=== PATIENT | female | born 1995 | race Caucasian/White ===

== ENCOUNTER → 2017-02-04 | Outpatient (CLI) | payer OTHER ==
[2017-02-04 12:14] LABS: Blood Urea Nitrogen 11 mg/dL (7-17); Non-African American GFR(MDRD) >60 (>60 ml/min/1.73 sqM)
== END | disposition home or self-care (01) ==
LOC: LABWHC1 11:11
PROVIDERS: ATTEND Psychiatry & Neurology Neurology
DX: C71.1 Malignant neoplasm of frontal lobe (principal); R51 Headache
CPT/HCPCS: 36415; 82565; 84520

== ENCOUNTER → 2017-02-12 | Outpatient (CLI) | payer OTHER ==
--- NOTE | 2017-02-12 22:50 | MR ---
EXAMINATION TYPE: MR brain wo/w con, MR angio head wo con DATE OF EXAM: 02/12/2017 COMPARISON: Correlation CT 03/05/2016 HISTORY: 22-year-old female chronic migraines, evaluate for brain tumor or nonruptured cerebral aneur ysm. TECHNIQUE: Multiplanar, multisequence images of the brain and brainstem were acquired before and aft er administration of 11 ml IV MultiHance. Diffusion weighted imaging was performed. Additional high -resolution 3-D iuma-yf-zfhmku imaging of the [place] was performed. Rotational 3-D reconst ructions were generated on a dedicated independent workstation. FINDINGS: MRI: Prominent facial and orbital artifacts probably due to dental amalgam. This also limits the diffusion sequence. No definite abnormality on diffusion. Loss of fluid saturation on axial FLAIR sequence towards the vertex suspected to be artifactual as th ere is no abnormal thickened meningeal enhancement in this region. T2/FLAIR weighted sequences show no white matter signal abnormality. No evidence for acute infarction, hemorrhage, mass, mass effect, midline shift, herniation, effacemen t of basal cisterns, or extra-axial fluid collection. The ventricles and sulci are age-appropriate. Major intracranial flow voids are intact. Midline structures demonstrate normal morphology. The craniocervical junction is normal. Post contrast images demonstrate no evidence of pathologic enhancement. Dural venous sinuses are florentino nt. MRA: Anterior posterior circulation is patent without significant stenosis, arterial occlusion, or aneurys mal change seen. COMBINED IMPRESSION: 1. Prominent artifacts, probably due to extensive dental amalgam or braces. Clinically correlate. 2. Allowing for these artifacts, no definite intracranial abnormality or white matter signal changes are identified. 3. Unremarkable MRA [place].
== END | disposition home or self-care (01) ==
LOC: RADMRIMAIN 17:04
PROVIDERS: ATTEND Psychiatry & Neurology Neurology
DX: D33.2 Benign neoplasm of brain, unspecified (principal); I67.1 Cerebral aneurysm, nonruptured
CPT/HCPCS: 70544; 70553; A9577

== ENCOUNTER → 2018-06-04 | Outpatient (CLI) | payer OTHER ==
--- NOTE | 2018-06-04 14:42 | US ---
EXAMINATION TYPE: US pelvic complete DATE OF EXAM: 06/04/2018 COMPARISON: NONE CLINICAL HISTORY: Pelvic Pain R10.2. Pelvic pain, depo shot 06/02/18 TECHNIQUE: Transabdominal (TA) Date of LMP: beginning may EXAM MEASUREMENTS: Uterus: 8.9 x 4.5 x 5.8 cm Endometrial Stripe: 0.8 cm Right Ovary: 3.1 x 1.4 x 2.9 cm Left Ovary: 3.5 x 1.5 x 3.5 cm 1. Uterus: Anteverted 2. Endometrium: appears wnl 3. Right Ovary: follicles noted 4. Left Ovary: follicles noted 5. Bilateral Adnexa: appears wnl 6. Posterior cul-de-sac: trace amount of free fluid noted Heterogeneous anteverted uterus without suspicious endometrial thickening. Trace free fluid free flui d in pelvis favored physiologic. Both ovaries identified with peripheral follicles. No suspicious adnexal lesions. IMPRESSION: Unremarkable study.
== END ==
LOC: RADUSWWP 13:42
PROVIDERS: ATTEND Obstetrics & Gynecology
DX: R10.2 Pelvic and perineal pain (principal)
CPT/HCPCS: 76856

== ENCOUNTER → 2019-05-29 | Outpatient (CLI) | payer OTHER ==
--- NOTE | 2019-05-30 03:47 | MR ---
EXAMINATION TYPE: MR wrist RT wo con DATE OF EXAM: 05/29/2019 COMPARISON: HISTORY: R WRIST PAIN Standard multiplanar, multisequence MRI departmental protocol Multiplanar, multisequence images of the right wrist were acquired. FINDINGS: The carpal bones appear intact. There is fairly normal signal pattern. There is no evidence of a fracture. There is no sign of avascular necrosis. The triangular cartilage appears intact. The metacarpals have normal signal pattern without evidence of edema. There is no evidence of joint effus ion. The flexor tendons of the wrist appear intact. There is small amount of soft tissue edema around the ulnar styloid process. This measures 8 mm. No f racture seen. Collateral ligaments of the wrist appear intact. IMPRESSION: There is some soft tissue edema around the ulnar styloid process. No evidence of ligament tear. No fr acture seen. Normal joint spaces.
== END | disposition home or self-care (01) ==
LOC: RADMRIMAIN 18:45
PROVIDERS: ATTEND Family Medicine
DX: M79.89 Other specified soft tissue disorders (principal)

== ENCOUNTER → 2020-07-05 | Outpatient (CLI) | payer OTHER ==
--- NOTE | 2020-07-05 13:08 | US ---
EXAMINATION TYPE: US pelvic complete DATE OF EXAM: 07/05/2020 COMPARISON: US 06/04/18 CLINICAL HISTORY: Z97.5 IUD PLACEMENT, R10.2 PELVIC PAIN. TECHNIQUE: Transabdominal (TA). Transabdominal sonographic images of the pelvis were acquired. Tra nsvaginal sonographic images were medically necessary to better assess the following anatomy: Date of LMP: 2 years ago. Patient on Depo until 1 year ago when IUD was placed. EXAM MEASUREMENTS: Uterus: 9.6 x 6.7 x 3.4 cm Endometrial Stripe: 0.3 cm Right Ovary: 3.2 x 2.1 x 1.8 cm Left Ovary: 4.1 x 2.6 x 2.6 cm 1. Uterus: Anteverted wnl, IUD seen located centrally within uterus 2. Endometrium: wnl 3. Right Ovary: Follicles present 4. Left Ovary: Prominent size, Follicles present. Area of decreased echogenicity within left ovary= 2.5 cm. This may be an involuting cyst among other etiologies. Consider short-term follow-up in 6 we eks to reevaluate. Small amount of free fluid around left ovary. Spectral, color and waveform doppler imaging shows good arterial and venous flow within the ovaries ; there is no evidence for ovarian torsion. 5. Bilateral Adnexa: wnl 6. Posterior cul-de-sac: wnl IMPRESSION: 1. IUD within the endometrial canal. 2. There may be a hypoechoic 2.5 cm area within the left ovary. Follow-up exam in 6 weeks is recommen ded to reevaluate this finding.
== END | disposition home or self-care (01) ==
LOC: RADUSWWP 12:22
PROVIDERS: ATTEND Obstetrics & Gynecology
DX: R93.89 Abnormal findings on diagnostic imaging of other specified body structures (principal); Z97.5 Presence of (intrauterine) contraceptive device
CPT/HCPCS: 76856

== ENCOUNTER → 2021-09-12 | Outpatient (CLI) | payer OTHER ==
--- NOTE | 2021-09-12 23:33 | US ---
EXAMINATION TYPE: Ultrasound OB <= 14 week fetus DATE OF EXAM: 09/12/2021 2:54 PM COMPARISON: NONE CLINICAL HISTORY: 26-year-old female Z36 CONFIRM GESTATIONAL AGE AND VIABILITY. EXAM PERFORMED: Transabdominal (TA) FINDINGS: EXAM MEASUREMENTS: GESTATIONAL AGE / DATING Physician Established: Not yet established Dates by LMP: ( weeks/ day) EDC: 04/02/2022 Dates by First Scan: No previous Dates by Current Scan for: () EDC: 04/02/2022 MATERNAL ANATOMY Uterus: 15.6 x 9.4 x 6.9cm Right Ovary: 3.2 x 1.7 x 1.6cm Left Ovary: 4.2 x 2.7 x 2.5cm; left ovarian cyst seen = 2.3 x 2.2 x 1.9cm. Post CDS / Adnexa: wnl Presence of free fluid: no Presence of corpus luteal cyst: in right ovary = 1.7 x 1.4 x 1.1cm. Presence of subchorionic bleed: yes, seen as crescentic hypoechoic area = 4.0 x 6.5 x 0.6cm. Along th e posterior and inferior margin of the gestational sac GESTATION / SURVEY CRL: 4.2cm (11 weeks/1 day) Yolk Sac (normal less than 6mm): 4.0mm Heart Rate: 156 bpm Rhythm: Normal IUP: Viable IUP Limbs: Visualized Calvarium: Visualized Date of LMP: 06/26/2021 Beta HcG (if available): Not available at this time Chief Dietitian notes: Single live IUP, 11 weeks/1 day, EDC: 04/02/2022, HR 156bpm; Presence of subchorio flash bleed seen as hypoechoic area = 4.0 x 6.5 x 0.6cm. IMPRESSION: 1. Single live intrauterine with estimated gestational age of 11 weeks 1 day by LMP. Curren t ultrasound biometry by crown-rump length is exactly concordant. 2. Moderate-sized crescentic subchorionic bleed along the posterior and inferior margin of the gestat ional sac measuring up to 6.5 x 4.0 x 0.6 cm. 3. Short interval follow-up as clinically indicated. Otherwise, complete survey recommended at 18-20 weeks.
== END | disposition home or self-care (01) ==
LOC: RADUSWWP 14:21
PROVIDERS: ATTEND Obstetrics & Gynecology
DX: O20.8 Other hemorrhage in early pregnancy (principal); Z3A.11 11 weeks gestation of pregnancy
CPT/HCPCS: 76801

== ENCOUNTER 2021-12-14 14:23 | Emergency (ER) | payer OTHER ==
[2021-12-14 15:43] VITALS: RESP 18
[2021-12-14 16:14] LABS: Appearance,Urine Cloudy (Clear); Bacteria,Urine Few /hpf; Bilirubin,Urine Negative (Negative); Blood,Urine Negative (Negative); Color,Urine Yellow; Glucose,Urine (UA) Negative (Negative); Hyaline Casts,Urine 1 /lpf (0-2); Ketones,Urine Negative (Negative); Leukocyte Esterase,Urine Negative (Negative); Mucus,Urine Rare /hpf; Nitrite,Urine Negative (Negative); PH, Urine 7.5 (5.0-8.0); Protein,Urine Trace (Negative); RBC,Urine 1 /hpf (0-5); Specific Gravity,Urine 1.016 (1.001-1.035); Squamous Epithelial Cell,Urine 2 /hpf (0-4); Urobilinogen,Urine <2.0 mg/dL (<2.0); WBC,Urine 2 /hpf (0-5)
--- NOTE | 2021-12-14 17:18 | ED ---
URI HPI - General Chief Complaint: Upper Respiratory Infection Stated Complaint: 24 wks , Fever, cough Time Seen by Provider: 12/14/21 16:25 Source: patient, RN notes reviewed Mode of arrival: ambulatory Limitations: no limitations - History of Present Illness Initial Comments: This is a 26-year-old female who presents to the emergency department for coughing, congestion, a sore throat, and body aches. 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 She is 24 weeks . Denies any vaginal bleeding and is feeling regular movement. Symptoms have been present for 1-2 days. Her highest measured temperature was 99.7 degrees F and she does have chills. Denies any sick contacts. MD Complaint: cough, sore throat, nasal congestion Onset/Timin -: days(s) Associated Symptoms: chills Treatments Prior to Arrival: Acetaminophen - Related Data Home Medications Medication Instructions Recorded Confirmed Fpl-Aige-Mdrmd Acid 1 cap PO DAILY 12/14/21 12/14/21 [-U Capsule (formulary)] Previous Rx's Medication Instructions Recorded Oseltamivir [Tamiflu] 75 mg PO Q12HR 5 Days #10 cap 12/14/21 Allergies Allergy/AdvReac Type Severity Reaction Status Date / Time amoxicillin Allergy Rash/Hives Verified 12/14/21 18:35 polyethylene glycol 3350 Allergy Rash/Hives Verified 12/14/21 18:35 [From Miralax] Review of Systems ROS Statement: Those systems with pertinent positive or pertinent negative responses have been documented in the HPI. ROS Other: All systems not noted in ROS Statement are negative. Constitutional: Reports: chills. Denies: fever Eyes: Denies: eye pain ENT: Reports: throat pain, congestion. Denies: ear pain Respiratory: Reports: cough. Denies: dyspnea Cardiovascular: Denies: chest pain, palpitations Gastrointestinal: Denies: abdominal pain, nausea, vomiting, diarrhea Genitourinary: Denies: urgency, dysuria Musculoskeletal: Denies: back pain Skin: Denies: rash Neurological: Reports: headache Past Medical History Past Medical History: No Reported History History of Any Multi-Drug Resistant Organisms: None Reported Past Surgical History: No Surgical Hx Reported Past Psychological History: Depression Smoking Status: Never smoker Past Alcohol Use History: None Reported Past Drug Use History: None Reported General Exam Limitations: no limitations General appearance: alert, in no apparent distress Head exam: Present: atraumatic, normocephalic, normal inspection ENT exam: Present: normal exam, mucous membranes moist, TM's normal bilaterally, normal external ear exam, other (3+ tonisllar hypertrophy, which is normal per the patient. Mild pharyngeal erythema.) Neck exam: Present: normal inspection. Absent: tenderness, meningismus, lymphadenopathy Respiratory exam: Present: normal lung sounds bilaterally. Absent: respiratory distress, wheezes, rales, rhonchi, stridor Cardiovascular Exam: Present: regular rate, normal rhythm, normal heart sounds. Absent: systolic murmur, diastolic murmur, rubs, gallop, clicks Neurological exam: Present: alert, oriented X3, CN II-XII intact Psychiatric exam: Present: normal affect, normal mood Skin exam: Present: warm, dry, intact, normal color. Absent: rash Course Vital Signs 12/14/21 15:35 Temperature 98.7 F Pulse Rate 112 H Respiratory 18 Rate Blood Pressure 124/63 O2 Sat by Pulse 100 Oximetry Medical Decision Making - Medical Decision Making This is a 26-year-old female who presents to the emergency department for upper respiratory symptoms. Patient tested positive for influenza A. Prescription for Tamiflu provided. She is advised to take Tylenol for headaches, body aches, and fevers. She is also advised to stay well-hydrated and discuss other treatment options with her gas station supervisor to ensure they are safe in . heart tones within normal limits at 150-165 bpm. Patient given 500 mL fluid bolus and 650 mg of Tylenol before discharge per her request. Return precautions reviewed in depth, the patient is instructed to return to the emergency department with any new, worsening, or concerning symptoms. Patient verbalized understanding. This case was discussed in detail with the attending ED physician. Presentation, findings, and treatment plan discussed in detail as well. - Lab Data Lab Results 12/14/21 12/14/21 12/14/21 Range/Units 15:45 15:45 15:46 Urine Color Yellow Urine Appearance Cloudy H (Clear) Urine pH 7.5 (5.0-8.0) Ur Specific [place] 1.016 (1.001-1.035) Urine Protein Trace H (Negative) Urine Glucose (UA) Negative (Negative) Urine Ketones Negative (Negative) Urine Blood Negative (Negative) Urine Nitrite Negative (Negative) Urine Bilirubin Negative (Negative) Urine Urobilinogen <2.0 (<2.0) mg/dL Ur Leukocyte Esterase Negative (Negative) Urine RBC 1 (0-5) /hpf Urine WBC 2 (0-5) /hpf Ur Squamous Epith Cells 2 (0-4) /hpf Urine Bacteria Few H (None) /hpf Hyaline Casts 1 (0-2) /lpf Urine Mucus Rare H (None) /hpf Coronavirus (PCR) Not Detected (Not Detectd) Influenza Type A RNA Detected H (Not Detectd) Influenza Type B (PCR) Not Detected (Not Detectd) Disposition Clinical Impression: Influenza A Disposition: HOME SELF-CARE Instructions (If sedation given, give patient instructions): Influenza (ED), Upper Respiratory Infection (ED) Additional Instructions: Return to the emergency department with any new, worsening, or concerning symptoms. Take Tylenol as needed for fevers and body aches. Take the Tamiflu twice daily for 5 days. Follow up with your primary care provider in 1-2 days. Prescriptions: Oseltamivir [Tamiflu] 75 mg PO Q12HR 5 Days #10 cap Is patient prescribed a controlled substance at d/c from ED?: No Referrals: Jerman Garcia DO [Primary Care Provider] - 1-2 days
[2021-12-14] MEDS ORDERED: ACETAMINOPHEN TAB 325 MG TAB PO STA (18:51)
[2021-12-14] MEDS ORDERED: SODIUM CHLORIDE 0.9% 500 ML 500 ML IV STA (18:51)
[2021-12-14 19:58] VITALS: BP 119/61; PULSE 115; TEMP 97
== END 2021-12-14 20:38 | disposition home or self-care (01) ==
LOC: EC 14:23
DX: O98.512 Other viral diseases complicating pregnancy, second trimester (principal); J10.1 Influenza due to other identified influenza virus with other respiratory manifestations; Z20.822 Contact with and (suspected) exposure to COVID-19; Z3A.24 24 weeks gestation of pregnancy
CPT/HCPCS: 81001; 87502; 87635; 99284

== ENCOUNTER 2022-02-06 12:01 | Outpatient (CLI) | payer OTHER ==
[2022-02-06 13:15] VITALS: BP 126/77; PULSE 113; RESP 18; TEMP 98.4
--- NOTE | 2022-02-06 18:05 | P.MSEPDOC ---
Presenting Problems - Arrival Data Date of Arrival on Unit: 02/06/22 Time of Arrival on Unit: 12:07 Mode of Transport: Ambulatory - Complaint OB-Reason for Admission/Chief Complaint: Other Comment: c/o "heart racing" and occasional lightheadiness. Medical History - Information : 1 Para: 0 Term: 0 : 0 Abortions: Spontaneous or Elective: 0 Number of Living Children: 0 - Gestational Age Gestational Age by DARIELA (wks/days): 32 Weeks and 1 Days Review of Systems - Review of Systems Constitutional: No problems Breast: No problems ENT: No problems Cardiovascular: No problems Respiratory: No problems Gastrointestinal: No problems Genitourinary: No problems Musculoskeletal: No problems Neurological: No problems Skin: No problems Vital Signs - Temperature Temperature: 98.4 F Temperature Source: Temporal Artery Scan - Pulse Right Pulse Rate: 113 Pulse Assessment Method: Pulse Oximetry - Respirations Respiratory Rate: 18 Oxygen Delivery Method: Room Air O2 Sat by Pulse Oximetry: 100 - Blood Pressure Right Arm Blood Pressure: 126/77 Blood Pressure Mean: 93 Blood Pressure Source: Automatic Cuff Medical Screen Scoring - Cervical Exam Membranes: Intact - Assessment - Baby A Baseline FHR: 150 Heart Rate - NICHD Category: Category I (Normal) NST: Reactive Physician Notification - Physician Notified Physician Notified Date: 02/06/22 Physician Notified Time: 12:38 Physician: Elo Gonzalez Order Received: Yes (D/c home follow up with aluminum polisher.) Maternal Triage Index - Maternal Triage Index Presenting for scheduled procedure w/no complaint: No - Stat/Priority 1 Stat Priority 1: No - Urgent/Priority 2 Urgent Priority 2: No - Prompt/Priority 3 Prompt Priority 3: No - Non-Urgent/Priority 4 Non-Urgent Priority 4: Yes Criteria Met for Priority 4: c/o "heart racing" and occasional lightheadiness. - Scheduled/Requesting Priority 5 Scheduled/Requesting Priority 5: No Disposition - Disposition OB Disposition: Discharge to home Discharge Date: 02/06/22 Discharge Time: 12:48 I agree with the RN Medical Screening Exam: Yes Case reviewed; plan agreed upon as documented in EMR&OBIX.: Yes Comments: Patient advised to contact cardiology for follow-up regarding tachycardia. She has already completed a Holter monitor. Diagnosis: TACHYCARDIA, UNSPECIFIED
== END 2022-02-06 12:48 | disposition home or self-care (01) ==
LOC: FBPOP 12:01
PROVIDERS: ATTEND Obstetrics & Gynecology
DX: O99.413 Diseases of the circulatory system complicating pregnancy, third trimester (principal); R00.0 Tachycardia, unspecified; Z3A.32 32 weeks gestation of pregnancy; Z88.1 Allergy status to other antibiotic agents; Z88.8 Allergy status to other drugs, medicaments and biological substances
CPT/HCPCS: 59025; G0463; 99213

== ENCOUNTER 2022-04-01 07:57 | Inpatient (IN) | payer OTHER ==
[2022-04-01] MEDS ORDERED: LIDOCAINE 0.5% (PF) 5 MG/ML (50 ML SDV) SQ PRN (08:13)
[2022-04-01] MEDS ORDERED: CARBOPROST TROMETHAMINE 250 MCG/ML 1 ML AMP IM PRN (08:13)
[2022-04-01] MEDS ORDERED: TERBUTALINE 1 MG/ML VIAL SQ PRN (08:13)
[2022-04-01] MEDS ORDERED: OXYTOCIN 10 UNIT/ML 1 ML VIAL IM PRN (08:13)
[2022-04-01] MEDS ORDERED: METHYLERGONOVINE 0.2 MG/ML 1 ML AMP IM PRN (08:13)
[2022-04-01] MEDS: LACTATED RINGERS 1,000 ML IV SCH ×3 (08:41→12:23)
[2022-04-01 08:50] LABS: Basophils # (A) 0.1 k/uL (0-0.2); Basophils % (A) 0 %; Eosinophils # (A) 0.1 k/uL (0-0.7); Eosinophils % (A) 1 %; HCT 37.6 % (34.0-46.0); HGB 12.2 gm/dL (11.4-16.0); Lymphocytes # (A) 2.9 k/uL (1.0-4.8); Lymphocytes % (A) 24 %; MCH 29.7 pg (25.0-35.0); MCHC 32.5 g/dL (31.0-37.0); MCV 91.5 fL (80.0-100.0); Monocytes # (A) 0.5 k/uL (0-1.0); Monocytes % (A) 4 %; Neutrophils # (A) 8.2 k/uL (1.3-7.7); Neutrophils % (A) 69 %; Platelet Count 244 k/uL (150-450); RDW 12.9 % (11.5-15.5); WBC 11.8 k/uL (3.8-10.6)
[2022-04-01] MEDS ORDERED: SODIUM CHLORIDE 0.9% 100 ML BAG ONE (09:01)
[2022-04-01] MEDS ORDERED: ROPIVACAINE 5 MG/ML 20 ML AMPULE ONE (09:01)
[2022-04-01] MEDS ORDERED: fentaNYL (PF) 50 MCG/ML 5 ML AMP ONE (09:01)
[2022-04-01 09:10] LABS: Appearance,Urine Cloudy (Clear); Bacteria,Urine Many /hpf; Bilirubin,Urine Negative (Negative); Blood,Urine Large (Negative); Color,Urine Yellow; Glucose,Urine (UA) Negative (Negative); Ketones,Urine Negative (Negative); Leukocyte Esterase,Urine Small (Negative); Mucus,Urine Rare /hpf; Nitrite,Urine Negative (Negative); PH, Urine 7.5 (5.0-8.0); Protein,Urine 2+ (Negative); RBC,Urine 16 /hpf (0-5); Specific Gravity,Urine 1.012 (1.001-1.035); Squamous Epithelial Cell,Urine 7 /hpf (0-4); Urobilinogen,Urine <2.0 mg/dL (<2.0); WBC,Urine 12 /hpf (0-5)
[2022-04-01 09:13] LABS: ALT 12 U/L (4-34); AST 23 U/L (14-36); African American GFR (CKD) >90 (>60 ml/min/1.73 sqM); Blood Urea Nitrogen 9 mg/dL (7-17); LDH 562 U/L (313-618); Non-African American GFR(CKD) >90 (>60 ml/min/1.73 sqM)
[2022-04-01 09:18] LABS: Creatinine,Urine Random 69.6 mg/dL
[2022-04-01 09:50] LABS: Protein/Creatinine Ratio,Urine 3.894
--- NOTE | 2022-04-01 10:02 | P.HPOB ---
History of Present Illness H&P Date: 04/01/22 Chief Complaint: Labor 27-year-old at 39 weeks and 6 days presents in active labor. Her cervix is 4 cm dilated, 100% effaced, and -1 station. She is javy every 3-4 minutes. heart tones 135 with moderate variability and reactive. She is very uncomfortable and requesting an epidural. Review of Systems All systems: negative Constitutional: Denies chills, Denies fever Eyes: denies blurred vision, denies pain Ears, nose, mouth and throat: Denies headache, Denies sore throat Cardiovascular: Denies chest pain, Denies shortness of breath Respiratory: Denies cough Gastrointestinal: Denies abdominal pain, Denies diarrhea, Denies nausea, Denies vomiting Genitourinary: Denies dysuria, Denies hematuria Musculoskeletal: Denies myalgias Integumentary: Denies pruritus, Denies rash Neurological: Denies numbness, Denies weakness Psychiatric: Denies anxiety, Denies depression Endocrine: Denies fatigue, Denies weight change Past Medical History Past Medical History: No Reported History Additional Past Medical History / Comment(s): Obstetric history: She's had care with Dr. Gonzalez since 10 weeks gestation. Blood type is B+, antibodies negative, rubella immune, RPR nonreactive, hepatitis B negative, GBS negative, HIV nonreactive. She did complain of some tachycardia with shortness of breath but saw foot and ankle surgeon and had an echocardiogram which were all normal. History of Any Multi-Drug Resistant Organisms: None Reported Past Surgical History: No Surgical Hx Reported Past Anesthesia/Blood Transfusion Reactions: No Reported Reaction Past Psychological History: Depression Smoking Status: Never smoker Past Alcohol Use History: None Reported Past Drug Use History: None Reported - Past Family History Father Family Medical History: No Reported History Medications and Allergies Home Medications Medication Instructions Recorded Confirmed Type Wfm-Ocxf-Jpisj Acid 1 cap PO DAILY 12/14/21 04/01/22 History [-U Capsule (formulary)] Allergies Allergy/AdvReac Type Severity Reaction Status Date / Time amoxicillin Allergy Rash/Hives Verified 04/01/22 08:12 polyethylene glycol 3350 Allergy Rash/Hives Verified 04/01/22 08:12 [From Miralax] Exam Osteopathic Statement: *. No significant issues noted on an osteopathic structural exam other than those noted in the History and Physical/Consult. Vital Signs Temp Pulse Resp BP Pulse Ox 04/01/22 08:19 97.5 F L 97 16 154/94 99 Intake and Output 03/31/22 04/01/22 04/01/22 22:59 06:59 14:59 Other: Weight 80.739 kg Heart: Regular rate and rhythm Lungs: Clear to auscultation bilaterally Abdomen: Soft, nontender Extremities: Negative Homans sign Results Result Diagrams: 04/01/22 08:36 04/01/22 08:36 Abnormal Lab Results - Last 24 Hours (Table) 04/01/22 04/01/22 Range/Units 08:36 08:36 WBC 11.8 H (3.8-10.6) k/uL Neutrophils # 8.2 H (1.3-7.7) k/uL Urine Appearance Cloudy H (Clear) Urine Protein 2+ H (Negative) Urine Blood Large H (Negative) Ur Leukocyte Esterase Small H (Negative) Urine RBC 16 H (0-5) /hpf Urine WBC 12 H (0-5) /hpf Ur Squamous Epith Cells 7 H (0-4) /hpf Urine Bacteria Many H (None) /hpf Urine Mucus Rare H (None) /hpf Assessment and Plan (1) Normal labor Current Visit: Yes Status: Acute Code(s): O80 - ENCOUNTER FOR FULL-TERM UNCOMPLICATED DELIVERY; Z37.9 - OUTCOME OF DELIVERY, UNSPECIFIED SNOMED Code(s): 03497667 (2) 39 weeks gestation of Current Visit: Yes Status: Acute Code(s): Z3A.39 - 39 WEEKS GESTATION OF SNOMED Code(s): 66429454 Plan: 1. Admit to family place for expectant management 2. Anticipate normal vaginal delivery
[2022-04-01] MEDS ORDERED: OXYTOCIN 30 UNITS/500 ML NS 30 UNIT in SALINE 1 500ML.BAG IV SCH ×2 (11:15→15:15)
--- NOTE | 2022-04-01 15:03 | P.PROBDLV ---
Vaginal Delivery Note - . Vaginal Delivery Note: 27-year-old at 39 weeks and 6 days presents in active labor. Her cervix is 4 cm dilated, 100% effaced, and -1 station. She is javy every 3-4 minutes. heart tones 135 with moderate variability and reactive. She is very uncomfortable and requesting an epidural. Epidural was placed and patient was comfortable. Amniotomy performed at 9:53 AM clear fluid noted. She was still 4-5 cm dilated now and a half later so Pitocin augmentation was started. Her cervix was completely dilated at 1351. She pushed, delivered a viable female infant over intact perineum under epidural anesthesia at 1449. Head delivered OA, anterior shoulder delivered gentle downward guidance for by posterior shoulder and rest of body. Nose mouth bulb suctioned, cord clamped and cut, placed mother's abdomen. Apgars 9, 9, weight pending. Placenta delivered spontaneously, intact with three-vessel cord at 1451. Vagina, cervix, perineum inspected. Second-degree midline laceration was repaired with 3-0 Vicryl. Estimated blood loss 100 mL. Mother and baby in stable condition.
[2022-04-01] MEDS ORDERED: diphenhydrAMINE 25 MG CAP PO PRN (15:04)
[2022-04-01] MEDS ORDERED: diphenhydrAMINE 50 MG CAP PO PRN (15:04)
[2022-04-01] MEDS ORDERED: ZOLPIDEM 5 MG TAB PO PRN (15:04)
[2022-04-01] MEDS ORDERED: LANOLIN CREAM 5 GM TUBE TOPICAL PRN (15:04)
[2022-04-01] MEDS ORDERED: SIMETHICONE 80 MG CHEWABLE PO PRN (15:04)
[2022-04-01] MEDS ORDERED: BENZOCAINE/MENTHOL SPRAY 1 GM/SPRAY AEROSOL TOPICAL PRN (15:04)
[2022-04-01] MEDS ORDERED: diphenhydrAMINE 50 MG/ML 1 ML VIAL IVP PRN ×2 (15:04)
[2022-04-01] MEDS ORDERED: HYDROCORTISONE 2.5% RECTAL CREAM 30 GM TUBE RECTAL PRN (15:04)
[2022-04-01] MEDS: IBUPROFEN 600 MG TAB PO PRN (15:22)
[2022-04-01] MEDS: ACETAMINOPHEN TAB 325 MG TAB PO PRN (18:30)
[2022-04-01] MEDS: SENNOSIDES-DOCUSATE SODIUM 1 EACH TAB PO SCH (19:26)
[2022-04-01] MEDS ORDERED: ONDANSETRON 4 MG/2 ML VIAL IVP STA (19:39)
[2022-04-02] MEDS: IBUPROFEN 600 MG TAB PO PRN ×3 (04:43→18:02)
[2022-04-02 06:32] LABS: Basophils # (A) 0.1 k/uL (0-0.2); Basophils % (A) 1 %; Eosinophils # (A) 0.1 k/uL (0-0.7); Eosinophils % (A) 1 %; HCT 32.5 % (34.0-46.0); HGB 10.5 gm/dL (11.4-16.0); Lymphocytes % (A) 14 %; MCH 29.9 pg (25.0-35.0); MCHC 32.4 g/dL (31.0-37.0); MCV 92.3 fL (80.0-100.0); Mean Platelet Volume 9.8; Monocytes # (A) 0.6 k/uL (0-1.0); Monocytes % (A) 5 %; Neutrophils # (A) 10.9 k/uL (1.3-7.7); Neutrophils % (A) 79 %; Platelet Count 214 k/uL (150-450); RBC 3.53 m/uL (3.80-5.40); RDW 13.2 % (11.5-15.5); WBC 13.8 k/uL (3.8-10.6)
[2022-04-02] MEDS: ACETAMINOPHEN TAB 325 MG TAB PO PRN ×3 (07:56→23:02)
[2022-04-02] MEDS: SENNOSIDES-DOCUSATE SODIUM 1 EACH TAB PO SCH ×2 (07:56→19:47)
[2022-04-02] MEDS ORDERED: LABETALOL 5 MG/ML VIAL MDV IVP PRN ×3 (08:31)
[2022-04-02] MEDS ORDERED: hydrALAZINE HCL 20 MG/ML 1 ML VIAL IVP PRN (08:31)
[2022-04-02] MEDS ORDERED: MAGNESIUM SULFATE GM 6 GM in SODIUM CHLORIDE 0.9% 100 ML IVPB ONE (08:31)
--- NOTE | 2022-04-02 08:39 | P.PNOBGVD ---
Subjective - Subjective Principal diagnosis: Status post vaginal delivery day #1 Interval history: Patient is doing okay. She denies any headaches, blurry vision, or swelling. Lochia is moderate. Working on breast-feeding. Pain is rarely well-controlled with her pain medication. Patient reports: Reports appetite normal, Reports voiding normally, Reports pain well controlled, Reports ambulating normally : doing well, nursing well Objective - Latest Vital Signs Latest vital signs: Vital Signs Temp Pulse Resp BP Pulse Ox 04/02/22 08:00 98.1 F 81 16 157/101 04/02/22 00:00 98.4 F 85 16 152/95 98 04/01/22 19:58 98.2 F 94 16 150/84 97 04/01/22 17:02 99 16 157/85 04/01/22 16:32 62 16 140/86 04/01/22 16:02 81 16 150/87 04/01/22 15:47 92 16 151/101 04/01/22 15:32 105 H 16 150/89 04/01/22 15:17 105 H 16 155/89 04/01/22 15:02 97.7 F 98 16 155/88 Intake and Output 04/01/22 04/02/22 04/02/22 22:59 06:59 14:59 Intake Total 167 Output Total 228 Balance -61 Intake: Intake, IV Titration 167 Amount Oxytocin 30 Units/500 ml 167 Ns 30 unit In Saline 1 500ml.bag @ Per Protocol IV .Q0M [facility] Rx#:[id number] Output: Output, Quantitative 228 Blood Loss Other: # Voids 1 1 2 - Exam Extremities: Present: normal. Absent: tenderness, edema Abdomen: Present: normal appearance, soft. Absent: distention, tenderness Uterus: Present: normal, firm. Absent: tenderness - Labs Labs: Abnormal Lab Results - Last 24 Hours (Table) 04/01/22 04/01/22 04/02/22 Range/Units 08:36 08:36 06:05 WBC 11.8 H 13.8 H (3.8-10.6) k/uL RBC 3.53 L (3.80-5.40) m/uL Hgb 10.5 L (11.4-16.0) gm/dL Hct 32.5 L (34.0-46.0) % Neutrophils # 8.2 H 10.9 H (1.3-7.7) k/uL Urine Appearance Cloudy H (Clear) Urine Protein 2+ H (Negative) Urine Blood Large H (Negative) Ur Leukocyte Esterase Small H (Negative) Urine RBC 16 H (0-5) /hpf Urine WBC 12 H (0-5) /hpf Ur Squamous Epith Cells 7 H (0-4) /hpf Urine Bacteria Many H (None) /hpf Urine Mucus Rare H (None) /hpf Assessment and Plan Assessment: Status post vaginal delivery day #1 Preeclampsia-blood pressures increasing , PC ratio elevated at 3.9 Plan: Will start on magnesium sulfate seizure prophylaxis today. We'll continue to monitor blood pressures.
[2022-04-02] MEDS: LACTATED RINGERS 1,000 ML IV SCH (09:12)
[2022-04-02] MEDS: MAGNESIUM SULFATE-WATER PMX 20 GM in WATER FOR INJECTION 1 500ML.BAG IV SCH ×2 (09:49→19:48)
[2022-04-03] MEDS: LABETALOL 200 MG TAB PO SCH ×3 (01:05→20:35)
[2022-04-03] MEDS: IBUPROFEN 600 MG TAB PO PRN ×3 (04:03→17:43)
[2022-04-03] MEDS: MAGNESIUM SULFATE-WATER PMX 20 GM in WATER FOR INJECTION 1 500ML.BAG IV SCH (05:54)
--- NOTE | 2022-04-03 07:29 | P.MSEPDOC ---
Presenting Problems - Arrival Data Date of Arrival on Unit: 04/01/22 Time of Arrival on Unit: 08:30 Mode of Transport: Ambulatory - Complaint OB-Reason for Admission/Chief Complaint: Possible Onset of Labor Comment: contractions for 1 hour Medical History - Information : 1 Para: 0 Term: 0 : 0 Abortions: Spontaneous or Elective: 0 Number of Living Children: 0 - Gestational Age Gestational Age by DARIELA (wks/days): 39 Weeks and 6 Days Review of Systems - Review of Systems Constitutional: No problems Breast: No problems ENT: No problems Cardiovascular: No problems Respiratory: No problems Gastrointestinal: No problems Genitourinary: No problems Musculoskeletal: No problems Neurological: No problems Skin: No problems Vital Signs - Temperature Temperature: 97.9 F Temperature Source: Oral - Pulse Right Pulse Rate: 88 Pulse Assessment Method: Auscultation - Respirations Respiratory Rate: 17 Oxygen Delivery Method: Room Air O2 Sat by Pulse Oximetry: 97 - Blood Pressure Right Arm Blood Pressure: 137/92 Blood Pressure Mean: 107 Blood Pressure Source: Automatic Cuff Medical Screen Scoring - Cervical Exam Dilation (cm): 4 Effacement (%): 100 Station: -1 Membranes: Intact - Uterine Contractions Frequency From (mins): 3 Frequency To (mins): 3 Duration From (seconds): 60 Duration To (seconds): 80 Intensity: Strong Resting: Soft to palpation - Assessment - Baby A Baseline FHR: 125 Heart Rate - NICHD Category: Category I (Normal) NST: Reactive Physician Notification - Physician Notified Physician Notified Date: 04/01/22 Physician Notified Time: 08:10 Physician: Chloe Lin New Order Received: Yes (admit for labor may have epidural) Maternal Triage Index - Non-Urgent/Priority 4 Non-Urgent Priority 4: Yes Criteria Met for Priority 4: 39 6/7 contractions, 4cm Disposition - Disposition OB Disposition: Admit, LDRP Suite I agree with the RN Medical Screening Exam: Yes Case reviewed; plan agreed upon as documented in EMR&OBIX.: Yes Diagnosis: ENCOUNTER FOR FULL-TERM UNCOMPLICATED DELIVERY
[2022-04-03] MEDS: SENNOSIDES-DOCUSATE SODIUM 1 EACH TAB PO SCH ×2 (08:14→20:35)
[2022-04-03] MEDS: ACETAMINOPHEN TAB 325 MG TAB PO PRN ×3 (08:14→22:34)
[2022-04-03] MEDS: LACTATED RINGERS 1,000 ML IV SCH ×2 (08:18→10:50)
--- NOTE | 2022-04-03 08:45 | P.PNOBGVD ---
Subjective - Subjective Principal diagnosis: Status post vaginal delivery day #2 Interval history: Patient was placed on magnesium sulfate seizure prophylaxis yesterday morning. I did need to start labetalol early this morning due to severe category blood pressures. She does complain of dizziness while on the magnesium. She denies any headaches or blurry vision. She is doing well with breast-feeding. She does state she is very anxious about her blood pressures. Her pain is fairly well controlled with her pain medications but she does state that sometimes her pain may be causing her a pressures to be elevated. Patient reports: Reports appetite normal, Reports voiding normally, Reports pain well controlled, Reports ambulating normally : doing well, nursing well Objective - Latest Vital Signs Latest vital signs: Vital Signs Temp Pulse Resp BP Pulse Ox 04/03/22 08:00 98.2 F 83 16 147/98 04/03/22 07:29 97.9 F 88 17 137/92 97 04/03/22 07:00 88 17 137/92 97 04/03/22 06:00 79 17 156/97 99 04/03/22 05:00 92 17 146/91 99 04/03/22 04:00 86 17 146/92 99 04/03/22 03:00 97.9 F 82 18 149/97 98 04/03/22 02:00 90 17 151/53 98 04/03/22 01:20 80 17 153/104 04/03/22 01:00 89 16 159/121 04/03/22 00:40 163/105 04/03/22 00:00 83 17 167/102 99 04/02/22 23:00 90 17 154/97 98 04/02/22 22:00 75 17 148/82 98 04/02/22 21:00 98.3 F 96 16 155/97 98 04/02/22 20:00 97.9 F 88 17 153/98 98 04/02/22 19:00 104 H 18 156/103 99 04/02/22 18:00 92 16 148/94 04/02/22 17:00 86 16 143/92 98 04/02/22 16:00 88 16 148/98 99 04/02/22 15:15 98.0 F 84 16 144/88 99 04/02/22 14:16 88 16 157/92 98 04/02/22 13:16 84 16 150/90 99 04/02/22 12:13 98.2 F 80 16 155/93 04/02/22 11:59 99 16 150/97 04/02/22 11:16 106 H 16 155/101 04/02/22 10:52 101 H 16 163/99 04/02/22 10:14 102 H 16 158/102 99 04/02/22 09:55 99 16 150/101 04/02/22 09:40 98.1 F 108 H 16 148/100 04/02/22 09:30 98 16 149/96 04/02/22 09:20 105 H 16 150/98 99 Intake and Output 04/02/22 04/03/22 04/03/22 22:59 06:59 14:59 Intake Total 108.336 6662 100 Output Total 3000 2800 1000 Balance -2330.833 -1290 -900 Intake: Intake, IV Titration 569.167 500 Amount Lactated Ringers 1,000 ml 20 @ 20 mls/hr IV .Q24H MARIE Rx#:[id number] Magnesium Sulfate-Water 549.167 500 Pmx 20 gm In Water For Injection 1 500ml.bag @ 2 GM/HR 50 mls/hr IV .Q10H MARIE Rx#:[id number] Oral 100 1010 100 Output: Urine 3000 2800 1000 Other: # Voids 1 - Exam Extremities: Present: normal. Absent: tenderness, edema Abdomen: Present: normal appearance, soft. Absent: distention, tenderness Uterus: Present: normal, firm. Absent: tenderness Assessment and Plan Assessment: Status post vaginal delivery day #2 Currently on magnesium sulfates seizure prophylaxis and oral labetalol Plan: We'll stop magnesium this morning. Will continue to observe blood pressures on labetalol 200 mg twice a day. If anxiety continues, we may address this with medication. We'll continue to monitor until tomorrow.
[2022-04-04] MEDS: IBUPROFEN 600 MG TAB PO PRN ×3 (00:13→15:28)
[2022-04-04] MEDS: SENNOSIDES-DOCUSATE SODIUM 1 EACH TAB PO SCH (07:57)
[2022-04-04] MEDS: LABETALOL 200 MG TAB PO SCH (07:57)
[2022-04-04 08:05] VITALS: RESP 18
--- NOTE | 2022-04-04 08:50 | P.DS ---
Providers Date of admission: 04/01/22 08:11 Expected date of discharge: 04/04/22 Attending physician: Elo Gonzalez Primary care physician: Stated None Hospital Course: This is a 27-year-old female 1 para 0 at 39-6/7 weeks who presented in active labor. She delivered vaginally a viable female infant on 04/01/2022 with scores of 9 at 1 minute and 9 at 5 minutes and weight of 8 lbs. 0 oz. She did have elevated blood pressures on admission and preeclamptic workup did reveal a very high protein to creatinine ratio. On day #1 she was started on magnesium sulfate seizure prophylaxis due to continued elevated blood pressures. She was also started on labetalol 200 mg twice a day to bring her blood pressures out of the severe range. She also has been experiencing some anxiety. Pain has been fairly well-controlled with ibuprofen and Tylenol. She feels much better off of the magnesium. She denies any headaches or blurry vision or epigastric pain. Lochia has been minimal. She is breast-feeding. Vital signs are stable with blood pressures in the 140s over 80s to 90s. Abdomen is soft with fundus firm and nontender. Extremities show negative Homans. Impression is status post vaginal delivery day #3, preeclampsia-status post magnesium sulfate seizure prophylaxis. Plan is to discharge home today. Routine instructions are given. She is advised to follow up in the office in 1 week for a blood pressure check. She will be given prescriptions for ibuprofen and labetalol 200 mg twice a day. She may check her blood pressures at home as needed. Preeclampsia precautions are discussed. She is advised to call the office if she has any further questions or concerns prior to her appointments. Procedures: Spontaneous vaginal delivery of a viable female on 04/01/2022 Patient Condition at Discharge: Stable Plan - Discharge Summary New Discharge Prescriptions: New Ibuprofen [Motrin] 600 mg PO Q6HR PRN #60 tab PRN Reason: Mild Pain (Scale 1 To 3) Labetalol [Trandate] 200 mg PO BID #60 tab Continue Vse-Jfhl-Kkeuj Acid [-U Capsule (formulary)] 1 cap PO DAILY Discharge Medication List Xmi-Liph-Hkdje Acid [-U Capsule (formulary)] 1 cap PO DAILY 12/14/21 [History] Ibuprofen [Motrin] 600 mg PO Q6HR PRN #60 tab 04/04/22 [Rx] Labetalol [Trandate] 200 mg PO BID #60 tab 04/04/22 [Rx] Follow up Appointment(s)/Referral(s): Elo Gonzalez DO [Doctor of Osteopathic Medicine] - 1 Week (One week blood pressure check. 6 weeks check.) Activity/Diet/Wound Care/Special Instructions: Instructions 1. Do not begin any exercise program for 3 weeks. 2. Do not resume sexual relations for 3 weeks or longer if uncomfortable. 3. You may take tub baths or showers at any time. 4. You may use tampons if desired after 3 weeks. 5. Keep the area of episiotomy (stitches) clean and dry. 6. If you are not nursing, wear a good fitting, supportive bra during the day a nd limit fluid intake for at least 1 week to prevent breast engorgement. 7. Call the office, [phone], within the next week to make appointment for your 6 week checkup if it has not already been made. 8. Report any of the following occurrences to the doctor promptly: a. Heavy, excessive bleeding b. Chills, fever c. Burning or frequency of urination d. Pain or redness and breasts if nursing e. Increasing pain or swelling in episiotomy (stitches). In addition to the above instructions, the following additional should be followed: 1. No heavy lifting or straining (exercising) until after 6 week checkup. 2. Keep abdominal incision clean and dry: You may wear a dressing if more comfortable. 3. Make office appointment for 10 days after going home or as instructed by her doctor. Discharge Disposition: HOME SELF-CARE
[2022-04-04 10:23] VITALS: PULSE 84
[2022-04-04] MEDS: ACETAMINOPHEN TAB 325 MG TAB PO PRN (13:20)
[2022-04-04 17:10] VITALS: BP 146/88; TEMP 98.2
== END 2022-04-04 17:36 | disposition home or self-care (01) | DRG 807 ==
LOC: FBPOP 07:57 → 4FBP 08:11
PROVIDERS: ADMIT Obstetrics & Gynecology; ATTEND Obstetrics & Gynecology
PROC: 10E0XZZ Delivery of Products of Conception, External Approach (ICD-10-PCS; principal; 2022-04-01)
PROC: 0KQM0ZZ Repair Perineum Muscle, Open Approach (ICD-10-PCS; 2022-04-01)
PROC: 10907ZC Drainage of Amniotic Fluid, Therapeutic from Products of Conception, Via Natural or Artificial Opening (ICD-10-PCS; 2022-04-01)
PROC: 4A0HXCZ Measurement of Products of Conception, Cardiac Rate, External Approach (ICD-10-PCS; 2022-04-01)
PROC: 3E033VJ Introduction of Other Hormone into Peripheral Vein, Percutaneous Approach (ICD-10-PCS; 2022-04-01)
DX: O14.94 Unspecified pre-eclampsia, complicating childbirth (principal); Z37.0 Single live birth; F32.A Depression, unspecified; F41.9 Anxiety disorder, unspecified; O70.1 Second degree perineal laceration during delivery; O99.344 Other mental disorders complicating childbirth; Z3A.39 39 weeks gestation of pregnancy; Z88.1 Allergy status to other antibiotic agents; Z88.8 Allergy status to other drugs, medicaments and biological substances
CPT/HCPCS: 59025; 81001; 82565; 82570; 83615; 84156; 84450; 84460; 84520; 84550; 85025; 86850; 86900; 86901; 99213

== ENCOUNTER → 2023-02-21 | Outpatient (CLI) | payer OTHER ==
--- NOTE | 2023-02-21 14:19 | US ---
EXAMINATION TYPE: Transabdominal DATE OF EXAM: 02/21/2023 1:29 PM COMPARISON: NONE CLINICAL INDICATION: Female, 28 years old with history of Z36.89 CONFIRM GESTATIONAL DATES AND VIABIL ITY; confirm dates EXAM PERFORMED: Transabdominal (TA) EXAM MEASUREMENTS: GESTATIONAL AGE / DATING Dates by LMP: 12/21/2022 (8 weeks/6 days) EDC: 09/27/2022 Dates by Current Scan for: (8 weeks/2 days) EDC: 10/01/2022 MATERNAL ANATOMY Uterus: Right Ovary: Left Ovary: Post CDS / Adnexa: Presence of free fluid: Presence of corpus luteal cyst: yes, rt side: Presence of subchorionic bleed: no GESTATION / SURVEY CRL: 1.78 (8 weeks/2 days) Yolk Sac (normal less than 6mm): 0.3 Heart Rate: 170 bpm Rhythm: Normal IUP: Viable IUP Nuchal Translucency 10-14wks (normal less than 3mm): too early Age Appropriate Anatomy Cord Insertion: Too early to visualize Limbs: Too early to visualize Calvarium: Too early to visualize Date of LMP: 12/21/2022 Beta HcG (if available): Not available at this time Single live intrauterine gestation. IMPRESSION: Single live intrauterine gestation with estimated gestational age of 8 weeks 2 days and estimated due date of 10/01/2022.
== END | disposition home or self-care (01) ==
LOC: RADUSWWP 12:50
PROVIDERS: ATTEND Obstetrics & Gynecology
DX: Z36.89 Encounter for other specified antenatal screening (principal); Z3A.08 8 weeks gestation of pregnancy
CPT/HCPCS: 76801

== ENCOUNTER 2023-07-30 02:21 | Outpatient (CLI) | payer OTHER ==
[2023-07-30] MEDS: LACTATED RINGERS 1,000 ML IV SCH (03:00)
[2023-07-30 05:16] VITALS: BP 137/74; PULSE 97; RESP 16; TEMP 97.2
--- NOTE | 2023-10-10 07:51 | P.MSEPDOC ---
Presenting Problems - Arrival Data Date of Arrival on Unit: 07/30/23 Time of Arrival on Unit: 02:21 Mode of Transport: Ambulatory - Complaint OB-Reason for Admission/Chief Complaint: Other Comment: contractions and bleeding following intercourse Medical History - Information : 2 Para: 1 Term: 1 : 0 Abortions: Spontaneous or Elective: 0 Number of Living Children: 1 - Gestational Age Gestational Age by DARIELA (wks/days): 31 Weeks and 4 Days Review of Systems - Review of Systems Constitutional: No problems Breast: No problems ENT: No problems Cardiovascular: No problems Respiratory: No problems Gastrointestinal: No problems Genitourinary: No problems Musculoskeletal: No problems Neurological: No problems Skin: No problems Vital Signs - Temperature Temperature: 97.2 F Temperature Source: Temporal Artery Scan - Pulse Right Brachial Pulse Rate: 97 Pulse Assessment Method: Automatic Cuff - Respirations Respiratory Rate: 16 Oxygen Delivery Method: Room Air O2 Sat by Pulse Oximetry: 97 - Blood Pressure Right Arm Blood Pressure: 137/74 Blood Pressure Mean: 95 Blood Pressure Source: Automatic Cuff Medical Screen Scoring - Cervical Exam Dilation (cm): 2 Effacement (%): 50 Station: -3 Membranes: Intact - Uterine Contractions Frequency From (mins): 3 Frequency To (mins): 4 Duration From (seconds): 50 Duration To (seconds): 60 Intensity: Mild Resting: Soft to palpation - Assessment - Baby A Baseline FHR: 140 Heart Rate - NICHD Category: Category I (Normal) Physician Notification - Physician Notified Physician Notified Date: 07/30/23 Physician Notified Time: 02:51 Physician: Chloe Lin New Order Received: Yes - Notification Comment Comment: 0251- Dr. Lin called with report. Patient had intercourse at 0030 a nd had been cramping and noted bleeding. Patient cervix 2/50/-3. Category 1 heart tones. Contractions 3-4 minutes apart, patient rates 7/10. IVF ordered and recheck in 1 hour. 0355- Dr. Lin updated on category 1 heat tones, contractions 3-4 minutes apart but less pain ful, cervical exam the same. Patient to be dsicharged home. Maternal Triage Index - Maternal Triage Index Presenting for scheduled procedure w/no complaint: No - Stat/Priority 1 Stat Priority 1: No - Urgent/Priority 2 Urgent Priority 2: Yes Provider Notified: Chloe Lin Provider Notified Time: 02:51 Criteria Met for Priority 2: contracions 31 11/23 Disposition - Disposition OB Disposition: Discharge to home Discharge Date: 07/30/23 Discharge Time: 04:00 I agree with the RN Medical Screening Exam: Yes Case reviewed; plan agreed upon as documented in EMR&OBIX.: Yes Diagnosis: SPOTTING COMPLICATING , THIRD TRIMESTER
== END 2023-07-30 04:00 ==
LOC: FBPOP 02:21
PROVIDERS: ATTEND Obstetrics & Gynecology
DX: Z53.9 Procedure and treatment not carried out, unspecified reason (principal)
CPT/HCPCS: 59025; 96360; G0463; 96365; 99214

== ENCOUNTER 2023-09-20 00:03 | Inpatient (IN) | payer MEDICAID, OTHER ==
[2023-09-20] MEDS ORDERED: miSOPROStoL 200 MCG TAB PO PRN (01:34)
[2023-09-20] MEDS ORDERED: TRANEXAMIC 1,000 MG/100ML-NACL 1,000 MG in EMPTY BAG 1 BAG IV PRN (01:34)
[2023-09-20] MEDS ORDERED: METHYLERGONOVINE 0.2 MG/ML 1 ML AMP IM PRN (01:34)
[2023-09-20] MEDS ORDERED: LIDOCAINE 0.5% (PF) 5 MG/ML (50 ML SDV) SQ PRN (01:34)
[2023-09-20] MEDS ORDERED: OXYTOCIN 10 UNIT/ML 1 ML VIAL IM PRN (01:34)
[2023-09-20] MEDS ORDERED: CARBOPROST TROMETHAMINE 250 MCG/ML 1 ML AMP IM PRN (01:34)
[2023-09-20] MEDS ORDERED: TERBUTALINE 1 MG/ML VIAL SQ PRN (01:34)
[2023-09-20] MEDS ORDERED: OXYTOCIN 30 UNITS/500 ML NS 30 UNIT in SALINE 1 500ML.BAG IV SCH (01:45)
[2023-09-20] MEDS: LACTATED RINGERS 1,000 ML IV SCH ×2 (02:00→03:01)
[2023-09-20 02:05] LABS: Basophils % (A) 0 %; Eosinophils # (A) 0.1 k/uL (0-0.7); Eosinophils % (A) 1 %; HCT 32.6 % (34.0-46.0); HGB 11.2 gm/dL (11.4-16.0); Lymphocytes # (A) 2.1 k/uL (1.0-4.8); Lymphocytes % (A) 21 %; MCH 31.3 pg (25.0-35.0); MCHC 34.3 g/dL (31.0-37.0); MCV 91.3 fL (80.0-100.0); Mean Platelet Volume 9.4; Monocytes # (A) 0.4 k/uL (0-1.0); Monocytes % (A) 4 %; Neutrophils # (A) 7.2 k/uL (1.3-7.7); Neutrophils % (A) 72 %; Platelet Count 226 k/uL (150-450); RBC 3.57 m/uL (3.80-5.40)
--- NOTE | 2023-09-20 02:49 | P.HPOB ---
History of Present Illness H&P Date: 09/20/23 Chief Complaint: Contractions This is a 28-year-old female 2 para 1 with an estimated date of confinement of 09/27/2023, estimated gestational age of 39-0/7 weeks, who p resented to labor and delivery with complaints of contractions that began shortly after her visit in the office today and became stronger. She stated she is only feeling them about every 20 minutes but was concerned because she was dilated to 6 cm in the office. She denies any rupture membranes. course has been complicated by labor and contractions beginning at about 31 weeks. At that time she was noted to be 1-1/2 cm. Obstetrical history: . History of 1 delivery vaginally at 39-6/7 weeks with mild preeclampsia. Gynecologic history: No history of sexually transmitted diseases. Social history: She is but is . She works in [employer]. Review of Systems Constitutional: Denies chills, Denies fever Eyes: denies blurred vision, denies pain Ears, nose, mouth and throat: Denies headache, Denies sore throat Cardiovascular: Denies chest pain, Denies shortness of breath Respiratory: Denies cough Gastrointestinal: Reports abdominal pain Genitourinary: Reports pelvic pain, Reports Musculoskeletal: Reports low back pain Integumentary: Denies pruritus, Denies rash Neurological: Denies numbness, Denies weakness Psychiatric: Denies anxiety, Denies depression Past Medical History Additional Past Medical History / Comment(s): Irritable bowel syndrome, migraine headaches History of Any Multi-Drug Resistant Organisms: None Reported Additional Past Surgical History / Comment(s): Right ear reconstruction surgeries x 6, wisdom teeth Past Anesthesia/Blood Transfusion Reactions: No Reported Reaction Past Psychological History: No Psychological Hx Reported Smoking Status: Never smoker Past Alcohol Use History: None Reported Past Drug Use History: None Reported - Past Family History Father Family Medical History: Hypertension Medications and Allergies Home Medications Medication Instructions Recorded Confirmed Type Gaf-Duiy-Hvpdy Acid 1 cap PO DAILY 12/14/21 09/20/23 History [-U Capsule (formulary)] Acetaminophen Tab [Tylenol Tab] 1,000 mg PO Q12HR 07/30/23 09/20/23 History Aspirin 81 mg PO DAILY 07/30/23 09/20/23 History Allergies Allergy/AdvReac Type Severity Reaction Status Date / Time amoxicillin Allergy Rash/Hives Verified 09/20/23 00:06 polyethylene glycol 3350 Allergy Rash/Hives Verified 09/20/23 00:06 [From Miralax] fennel Allergy Anaphylaxis Uncoded 07/30/23 02:28 Exam Osteopathic Statement: *. No significant issues noted on an osteopathic structural exam other than those noted in the History and Physical/Consult. Vital Signs Temp Pulse Resp BP Pulse Ox 09/20/23 00:06 97.9 F 100 16 139/89 99 Intake and Output 09/19/23 09/19/23 09/20/23 14:59 22:59 06:59 Other: Weight 74.389 kg HEENT: Within normal limits Heart: Regular rate and rhythm Lungs: Clear to auscultation bilaterally Abdomen: Cervix: 6 to 7 cm / 80%/-2 station with bulging bag of water. Artificial rupture membranes is carried out with clear fluid noted. heart tones: Category 1. She had an isolated late deceleration upon arrival to triage but has had no further decelerations and currently is category 1 heart tones. Contractions: Every 3 to 5 minutes Extremities: Negative Homans Results Result Diagrams: 09/20/23 01:47 Abnormal Lab Results - Last 24 Hours (Table) 09/20/23 Range/Units 01:47 RBC 3.57 L (3.80-5.40) m/uL Hgb 11.2 L (11.4-16.0) gm/dL Hct 32.6 L (34.0-46.0) % Assessment and Plan (1) 39 weeks gestation of Current Visit: No Status: Acute Code(s): Z3A.39 - 39 WEEKS GESTATION OF SNOMED Code(s): 26910976 Plan: Admission for early active labor. Nitrous oxide for pain control. Patient may elect to receive epidural if desired. Oxytocin augmentation of labor. Expectant management.
--- NOTE | 2023-09-20 02:53 | P.MSEPDOC ---
Presenting Problems - Arrival Data Date of Arrival on Unit: 09/20/23 Time of Arrival on Unit: 00:03 Mode of Transport: Ambulatory - Complaint OB-Reason for Admission/Chief Complaint: Possible Onset of Labor Comment: pt c/o of contractions 20 min apart Medical History - Information : 2 Para: 1 Term: 1 : 0 Abortions: Spontaneous or Elective: 0 Number of Living Children: 1 - Gestational Age Gestational Age by DARIELA (wks/days): 39 Weeks and 0 Days Review of Systems - Review of Systems Constitutional: No problems Breast: No problems ENT: No problems Cardiovascular: No problems Respiratory: No problems Gastrointestinal: No problems Genitourinary: No problems Musculoskeletal: No problems Neurological: No problems Skin: No problems Vital Signs - Temperature Temperature: 97.9 F Temperature Source: Temporal Artery Scan - Pulse Right Sitting Pulse Rate: 100 Pulse Assessment Method: Automatic Cuff - Respirations Respiratory Rate: 16 Oxygen Delivery Method: Room Air O2 Sat by Pulse Oximetry: 99 - Blood Pressure Right Arm Sitting Blood Pressure: 139/89 Blood Pressure Mean: 105 Blood Pressure Source: Automatic Cuff Medical Screen Scoring - Cervical Exam Dilation (cm): 5 Effacement (%): 70 Station: -1 Membranes: Intact - Uterine Contractions Frequency From (mins): 3 Frequency To (mins): 5 Duration From (seconds): 70 Duration To (seconds): 90 Intensity: Moderate Resting: Soft to palpation - Assessment - Baby A Baseline FHR: 135 Heart Rate - NICHD Category: Category I (Normal) NST: Reactive Physician Notification - Physician Notified Physician Notified Date: 09/20/23 Physician Notified Time: 01:17 Physician: Elo Gonzalez Order Received: Yes (admit pt for labor) Maternal Triage Index - Maternal Triage Index Presenting for scheduled procedure w/no complaint: No - Stat/Priority 1 Stat Priority 1: No - Urgent/Priority 2 Urgent Priority 2: No - Prompt/Priority 3 Prompt Priority 3: No - Non-Urgent/Priority 4 Non-Urgent Priority 4: Yes Criteria Met for Priority 4: pt having irregular contractions since her appointment at 1600 today Disposition - Disposition OB Disposition: Admit, LDRP Suite I agree with the RN Medical Screening Exam: Yes Case reviewed; plan agreed upon as documented in EMR&OBIX.: Yes Diagnosis: ENCOUNTER FOR FULL-TERM UNCOMPLICATED DELIVERY
[2023-09-20] MEDS ORDERED: fentaNYL (PF) 50 MCG/ML 5 ML AMP ONE (03:16)
[2023-09-20] MEDS ORDERED: SODIUM CHLORIDE 0.9% 250 ML BAG ONE (03:16)
[2023-09-20] MEDS ORDERED: ROPIVACAINE 5 MG/ML 30 ML VIAL ONE (03:16)
--- NOTE | 2023-09-20 06:14 | P.PROBDLV ---
Vaginal Delivery Note - . Vaginal Delivery Note: The patient progressed to complete dilation after artificial rupture membranes with clear fluid noted and oxytocin augmentation of labor. She has started with nitrous oxide but then switched to epidural for pain control. Once reaching complete, she pushed for a couple pushes and taking to a crown. With 1 further push, the infant's head delivered across the perineum in the right occiput anterior lie followed by the anterior shoulder. The remainder the infa nt easily delivered and was placed on mother's abdomen. Nose and mouth were bulb suction. Cord was clamped and cut. Infant was taken to warmer for evaluation. A viable male was noted with scores of 9 at 1 minute and 9 at 5 minutes and weight of 7 pounds 11.5 ounces. Placenta delivered shortly thereafter, intact, with three-vessel cord. Uterus contracted well after oxytocin was given and uterine massage was carried out. Inspection of the perineum revealed a small abrasion on the perineum but no active bleeding noted. No stitching was required. Estimated blood loss is approximately 150 cc. Both mother and are in stable condition.
[2023-09-20] MEDS ORDERED: ZOLPIDEM 5 MG TAB PO PRN (06:22)
[2023-09-20] MEDS ORDERED: HYDROCORTISONE 2.5% RECTAL CREAM 30 GM TUBE RECTAL PRN (06:22)
[2023-09-20] MEDS ORDERED: diphenhydrAMINE 25 MG CAP PO PRN (06:22)
[2023-09-20] MEDS ORDERED: diphenhydrAMINE 50 MG/ML 1 ML VIAL IVP PRN ×2 (06:22)
[2023-09-20] MEDS ORDERED: diphenhydrAMINE 50 MG CAP PO PRN (06:22)
[2023-09-20] MEDS ORDERED: LANOLIN CREAM 5 GM TUBE TOPICAL PRN (06:22)
[2023-09-20] MEDS ORDERED: SIMETHICONE 80 MG CHEWABLE PO PRN (06:22)
[2023-09-20] MEDS ORDERED: BENZOCAINE/MENTHOL SPRAY 1 GM/SPRAY AEROSOL TOPICAL PRN (06:22)
[2023-09-20] MEDS: SENNOSIDES-DOCUSATE SODIUM 1 EACH TAB PO SCH ×2 (07:23→20:29)
[2023-09-20] MEDS: IBUPROFEN 600 MG TAB PO PRN ×3 (11:29→20:28)
[2023-09-20] MEDS: ACETAMINOPHEN TAB 325 MG TAB PO PRN ×2 (18:04→23:11)
[2023-09-20] MEDS: PRENATAL VIT-IRON-FOLIC ACID 1 EACH TABLET PO SCH (18:04)
[2023-09-20 23:29] LABS: Basophils # (A) 0.1 k/uL (0-0.2); Basophils % (A) 1 %; Eosinophils # (A) 0.2 k/uL (0-0.7); Eosinophils % (A) 1 %; HGB 10.6 gm/dL (11.4-16.0); Lymphocytes # (A) 2.7 k/uL (1.0-4.8); Lymphocytes % (A) 18 %; MCH 31.3 pg (25.0-35.0); MCHC 34.2 g/dL (31.0-37.0); MCV 91.6 fL (80.0-100.0); Mean Platelet Volume 9.5; Monocytes # (A) 0.7 k/uL (0-1.0); Monocytes % (A) 5 %; Neutrophils # (A) 11.6 k/uL (1.3-7.7); Neutrophils % (A) 75 %; Platelet Count 217 k/uL (150-450); RBC 3.38 m/uL (3.80-5.40); WBC 15.4 k/uL (3.8-10.6)
[2023-09-20] MEDS ORDERED: DIPHENOX-ATROP 2.5-0.025 MG 1 EACH TAB PO PRN (23:51)
[2023-09-20] MEDS ORDERED: KETOROLAC 15 MG/ML 1 ML VIAL IVP PRN (23:52)
[2023-09-21] MEDS ORDERED: KETOROLAC 15 MG/ML 1 ML VIAL IVP SCH
[2023-09-21] MEDS: PRENATAL VIT-IRON-FOLIC ACID 1 EACH TABLET PO SCH (08:17)
[2023-09-21] MEDS: IBUPROFEN 600 MG TAB PO PRN ×3 (08:18→23:29)
[2023-09-21 08:49] VITALS: RESP 16
[2023-09-21] MEDS: ACETAMINOPHEN TAB 325 MG TAB PO PRN ×3 (09:57→19:47)
[2023-09-21 10:22] LABS: Basophils % (A) 0 %; Eosinophils % (A) 0 %; HCT 30.7 % (34.0-46.0); HGB 9.9 gm/dL (11.4-16.0); Hypochromasia Slight; Lymphocytes # (A) 2.2 k/uL (1.0-4.8); Lymphocytes % (A) 14 %; MCH 30.4 pg (25.0-35.0); MCHC 32.3 g/dL (31.0-37.0); MCV 94.2 fL (80.0-100.0); Mean Platelet Volume 9.3; Monocytes # (A) 0.7 k/uL (0-1.0); Monocytes % (A) 4 %; Neutrophils # (A) 13.1 k/uL (1.3-7.7); Neutrophils % (A) 81 %; Platelet Count 256 k/uL (150-450); RBC 3.26 m/uL (3.80-5.40); WBC 16.1 k/uL (3.8-10.6)
[2023-09-21] MEDS: SENNOSIDES-DOCUSATE SODIUM 1 EACH TAB PO SCH ×2 (10:30→19:50)
--- NOTE | 2023-09-21 13:23 | P.PNOBGVD ---
Subjective - Subjective Principal diagnosis: Status post normal vaginal delivery day 1 Interval history: Patient seen and examined. She did bleed last night and I came in to the bedside to assess. The nursing staff had said she lost about 1000 mL but her hemoglobin and pulse to reflect that. Patient is feeling well today. Blood pressures actually a little bit increased and pulses normal. Hemoglobin dropped a gram and a half from predelivery. Patient reports: Reports appetite normal, Reports voiding normally, Reports pain well controlled, Reports ambulating normally : doing well Objective - Latest Vital Signs Latest vital signs: Vital Signs Temp Pulse Resp BP Pulse Ox 09/21/23 08:00 97.9 F 98 16 131/83 97 09/21/23 01:35 154/87 09/21/23 00:33 18 148/87 100 09/21/23 00:03 147/89 09/21/23 00:00 97.9 F 77 18 159/100 09/20/23 23:30 69 18 163/117 98 09/20/23 23:16 86 18 169/112 100 09/20/23 23:12 72 18 159/90 100 09/20/23 23:00 61 18 143/92 99 09/20/23 22:55 67 16 153/90 99 09/20/23 22:15 73 18 148/73 100 09/20/23 15:56 98.2 F 76 16 133/77 Intake and Output 09/20/23 09/21/23 09/21/23 22:59 06:59 14:59 Output Total 1217 177 Balance -1217 -177 Output: Output, Quantitative 1217 177 Blood Loss Other: # Voids 1 1 # Bowel Movements 2 - Exam Lungs: bilateral: normal Chest: Normal S1, Normal S2 Extremities: Present: normal Abdomen: Present: normal appearance, soft Uterus: Present: normal, firm - Labs Labs: Abnormal Lab Results - Last 24 Hours (Table) 09/20/23 09/21/23 Range/Units 23:20 09:10 WBC 15.4 H 16.1 H (3.8-10.6) k/uL RBC 3.38 L 3.26 L (3.80-5.40) m/uL Hgb 10.6 L 9.9 L (11.4-16.0) gm/dL Hct 31.0 L 30.7 L (34.0-46.0) % Neutrophils # 11.6 H 13.1 H (1.3-7.7) k/uL Assessment and Plan (1) Status post normal vaginal delivery Current Visit: Yes Status: Acute Code(s): FKI7906 - SNOMED Code(s): 969289858 (2) hemorrhage Current Visit: Yes Status: Acute Code(s): O72.1 - OTHER IMMEDIATE HEMORRHAGE SNOMED Code(s): 11334092 Plan: 1. Increase ambulation 2. Monitor blood pressures closely
[2023-09-22] MEDS: ACETAMINOPHEN TAB 325 MG TAB PO PRN ×3 (01:55→15:09)
[2023-09-22] MEDS: IBUPROFEN 600 MG TAB PO PRN ×2 (05:21→12:38)
[2023-09-22] MEDS: PRENATAL VIT-IRON-FOLIC ACID 1 EACH TABLET PO SCH (07:56)
[2023-09-22 11:04] VITALS: BP 144/84; PULSE 76; TEMP 98
--- NOTE | 2023-09-22 11:30 | P.DS ---
Providers Date of admission: 09/20/23 01:21 Expected date of discharge: 09/22/23 Attending physician: Elo Gonzalez Primary care physician: Stated None - Discharge Diagnosis(es) (1) Status post normal vaginal delivery Current Visit: Yes Status: Acute (2) hemorrhage Current Visit: Yes Status: Acute Hospital Course: Patient presented in active labor. She underwent a normal vaginal delivery. course was complicated with a hemorrhage 18 hours after delivery. Her hemoglobin is stable. She denies nausea, vomiting, chest pain, shortness of breath or calf pain. Her blood pressures did increase slightly but are not 130s over 80s. Patient will be discharged home day #2 to follow-up with Dr. Gonzalez in 6 weeks. Plan - Discharge Summary New Discharge Prescriptions: New Ibuprofen [Motrin] 600 mg PO Q6HR PRN #30 tab PRN Reason: Mild Pain (Scale 1 To 3) No Action Acetaminophen Tab [Tylenol Tab] 1,000 mg PO Q12HR Ihj-Hgdg-Myadt Acid [-U Capsule (formulary)] 1 cap PO DAILY Aspirin 81 mg PO DAILY Discharge Medication List Eyk-Xnpq-Thhpa Acid [-U Capsule (formulary)] 1 cap PO DAILY 12/14/21 [History] Acetaminophen Tab [Tylenol Tab] 1,000 mg PO Q12HR 07/30/23 [History] Aspirin 81 mg PO DAILY 07/30/23 [History] Ibuprofen [Motrin] 600 mg PO Q6HR PRN #30 tab 09/22/23 [Rx] Follow up Appointment(s)/Referral(s): Elo Gonzalez DO [Doctor of Osteopathic Medicine] - 6 Weeks Discharge Disposition: HOME SELF-CARE
[2023-09-22] MEDS: SENNOSIDES-DOCUSATE SODIUM 1 EACH TAB PO SCH (14:38)
== END 2023-09-22 17:10 | disposition home or self-care (01) | DRG 807 ==
LOC: FBPOP 00:03 → 4FBP 01:21
PROVIDERS: ADMIT Obstetrics & Gynecology; ATTEND Obstetrics & Gynecology
PROC: 10E0XZZ Delivery of Products of Conception, External Approach (ICD-10-PCS; principal; 2023-09-20)
PROC: 10907ZC Drainage of Amniotic Fluid, Therapeutic from Products of Conception, Via Natural or Artificial Opening (ICD-10-PCS; 2023-09-20)
DX: O72.1 Other immediate postpartum hemorrhage (principal); Z37.0 Single live birth; O70.9 Perineal laceration during delivery, unspecified; Z3A.39 39 weeks gestation of pregnancy; Z79.82 Long term (current) use of aspirin
CPT/HCPCS: 59025; 85025; 86850; 86900; 86901; 99213

== ENCOUNTER 2024-03-20 22:07 | Emergency (ER) | payer MEDICAID, OTHER ==
[2024-03-20 22:14] VITALS: RESP 18; TEMP 98
[2024-03-20 22:45] LABS: Appearance,Urine Cloudy (Clear); Bilirubin,Urine Negative (Negative); Blood,Urine Large (Negative); Calcium Oxalate Crystals,Urine Many /hpf; Color,Urine Yellow; Glucose,Urine (UA) Negative (Negative); Ketones,Urine Negative (Negative); Leukocyte Esterase,Urine Large (Negative); Mucus,Urine Many /hpf; Nitrite,Urine Negative (Negative); PH, Urine 5.5 (5.0-8.0); Protein,Urine 1+ (Negative); RBC,Urine >182 /hpf (0-5); Specific Gravity,Urine 1.015 (1.001-1.035); Squamous Epithelial Cell,Urine 20 /hpf (0-4); Urobilinogen,Urine <2.0 mg/dL (<2.0); WBC,Urine >182 /hpf (0-5)
--- NOTE | 2024-03-20 23:06 | ED ---
Female Urogenital HPI - General Chief complaint: Urogenital Stated complaint: Blood in Urine Time Seen by Provider: 03/20/24 22:15 Source: patient Mode of arrival: ambulatory Limitations: no limitations - History of Present Illness Initial comments: 29-year-old female presenting with chief complaint of dysuria and hematuria. Patient states that suddenly tonight she began experiencing burning as well as urgency and frequency. She had sudden onset episode of hematuria which prompted her to come to the ER. She vomited once a few days ago. She is having no flank pain. No fevers. She feels in general little rundown. No history of kidney stones. - Related Data Home Medications Medication Instructions Recorded Confirmed Fen-Xwdo-Elqod Acid 1 cap PO DAILY 12/14/21 09/20/23 [-U Capsule (formulary)] Acetaminophen Tab [Tylenol Tab] 1,000 mg PO Q12HR 07/30/23 09/20/23 Aspirin 81 mg PO DAILY 07/30/23 09/20/23 Previous Rx's Medication Instructions Recorded Ibuprofen [Motrin] 600 mg PO Q6HR PRN #30 tab 09/22/23 Cephalexin [Keflex] 500 mg PO Q12HR 7 Days #14 cap 03/20/24 Phenazopyridine HCl [Pyridium] 100 mg PO TID #9 tab 03/20/24 Allergies Allergy/AdvReac Type Severity Reaction Status Date / Time amoxicillin Allergy Rash/Hives Verified 09/20/23 00:06 polyethylene glycol 3350 Allergy Rash/Hives Verified 09/20/23 00:06 [From Miralax] Sulfa (Sulfonamide Allergy Rash/Hives Verified 03/20/24 22:14 Antibiotics) fennel Allergy Anaphylaxis Uncoded 07/30/23 02:28 Review of Systems ROS Statement: Those systems with pertinent positive or pertinent negative responses have been documented in the HPI. ROS Other: All systems not noted in ROS Statement are negative. Past Medical History Past Medical History: No Reported History Additional Past Medical History / Comment(s): Irritable bowel syndrome, migraine headaches History of Any Multi-Drug Resistant Organisms: None Reported Past Surgical History: No Surgical Hx Reported Additional Past Surgical History / Comment(s): Right ear reconstruction surgeries x 6, wisdom teeth Past Anesthesia/Blood Transfusion Reactions: No Reported Reaction Past Psychological History: No Psychological Hx Reported Smoking Status: Never smoker Past Alcohol Use History: None Reported Past Drug Use History: None Reported - Past Family History Father Family Medical History: Hypertension General Exam Limitations: no limitations General appearance: alert, in no apparent distress Head exam: Present: atraumatic, normocephalic Eye exam: Present: normal appearance, EOMI Neck exam: Present: normal inspection. Absent: meningismus Respiratory exam: Absent: respiratory distress Cardiovascular Exam: Present: regular rate GI/Abdominal exam: Absent: distended, tenderness Back exam: Absent: CVA tenderness (R), CVA tenderness (L) Neurological exam: Present: alert, oriented X3 Psychiatric exam: Present: normal affect, normal mood Skin exam: Present: warm, dry Course Vital Signs 03/20/24 03/20/24 22:12 23:38 Temperature 98 F Pulse Rate 92 72 Respiratory 18 18 Rate Blood Pressure 134/89 134/74 O2 Sat by Pulse 100 98 Oximetry Medical Decision Making - Medical Decision Making Was pt. sent in by a medical professional or institution (, PA, PROCESS DEVELOPMENT ASSOCIATE, urgent care, hospital, or care home...) When possible be specific @ -No Did you speak to anyone other than the patient for history (EMS, parent, family, police, friend...)? What history was obtained from this source @ -No Did you review nursing and triage notes (agree or disagree)? Why? @ -I reviewed and agree with nursing and triage notes Were old charts reviewed (outside hosp., previous admission, EMS record, old EKG, old radiological studies, urgent care reports/EKG's, care home records)? Report findings @ -No old charts were reviewed Differential Diagnosis (chest pain, altered mental status, abdominal pain women, abdominal pain men, vaginal bleeding, weakness, fever, dyspnea, syncope, headache, dizziness, GI bleed, back pain, seizure, CVA, palpatations, mental health, musculoskeletal)? @ -Differential includes UTI, pyelonephritis, kidney stone, this is not an all- inclusive list EKG interpreted by me (3pts min.). @ -As above X-rays interpreted by me (1pt min.). @ -None done CT interpreted by me (1pt min.). @ -None done U/S interpreted by me (1pt. min.). @ -None done What testing was considered but not performed or refused? (CT, X-rays, U/S, labs)? Why? @ -None What meds were considered but not given or refused? Why? @ -None Did you discuss the management of the patient with other professionals (professionals i.e. , PA, PROCESS DEVELOPMENT ASSOCIATE, lab, RT, psych nurse, social service assistant, probate lawyer, teacher, sea air land officer, housing case manager)? Give summary @ -No Was smoking cessation discussed for >3mins.? @ -No Was critical care preformed (if so, how long)? @ -No Were there social determinants of health that impacted care today? How? (Homelessness, low income, unemployed, alcoholism, drug addiction, transportation, low edu. Level, literacy, decrease access to med. care, residential, rehab)? @ -No Was there de-escalation of care discussed even if they declined (Discuss DNR or withdrawal of care, Hospice)? DNR status @ -No What co-morbidities impacted this encounter? (DM, HTN, Smoking, COPD, CAD, Cancer, CVA, ARF, Chemo, Hep., AIDS, mental health diagnosis, sleep apnea, morbid obesity)? @ -None Was patient admitted / discharged? Hospital course, mention meds given and route, prescriptions, significant lab abnormalities, going to OR and other pertinent info. @ -29-year-old female presenting with chief complaint of UTI-like symptoms. No fever or flank pain. Urine shows large blood and large leukocytes. Negative hCG. She will be treated with Keflex and Pyridium. Discharged home. Follow-up with PCP. Report back to ER with any new or worsening symptoms. Discussed return parameters and answered all questions. Patient conveyed verbal understanding and agreed to the plan. I discussed this case in detail with my attending Dr. Suárez Undiagnosed new problem with uncertain prognosis? @ -No Drug Therapy requiring intensive monitoring for toxicity (Heparin, Nitro, Insulin, Cardizem)? @ -No Were any procedures done? @ -No Diagnosis/symptom? @ -UTI Acute, or Chronic, or Acute on Chronic? @ -Acute Uncomplicated (without systemic symptoms) or Complicated (systemic symptoms)? @ -Uncomplicated Side effects of treatment? @ -No Exacerbation, Progression, or Severe Exacerbation? @ -No Poses a threat to life or bodily function? How? (Chest pain, USA, PA, pneumonia, PE, COPD, DKA, ARF, appy, cholecystitis, CVA, Diverticulitis, Homicidal, Suicidal, threat to staff... and all critical care pts) @ -Low likelihood - Lab Data Lab Results 03/20/24 03/20/24 Range/Units 22:23 22:23 Urine Color Yellow Urine Appearance Cloudy H (Clear) Urine pH 5.5 (5.0-8.0) Ur Specific [place] 1.015 (1.001-1.035) Urine Protein 1+ H (Negative) Urine Glucose (UA) Negative (Negative) Urine Ketones Negative (Negative) Urine Blood Large H (Negative) Urine Nitrite Negative (Negative) Urine Bilirubin Negative (Negative) Urine Urobilinogen <2.0 (<2.0) mg/dL Ur Leukocyte Esterase Large H (Negative) Urine RBC >182 H (0-5) /hpf Urine WBC >182 H (0-5) /hpf Ur Squamous Epith Cells 20 H (0-4) /hpf Calcium Oxalate Crystal Many H (None) /hpf Urine Mucus Many H (None) /hpf Urine HCG, Qual Not Detected (Not Detectd) Disposition Clinical Impression: Urinary tract infection Disposition: HOME SELF-CARE Condition: Good Instructions (If sedation given, give patient instructions): Urinary Tract Infection in Women (ED) Additional Instructions: Follow-up with PCP. Report back to ER with any new or worsening symptoms, including but not limited to fever, vomiting, back pain (aka flank pain). Prescriptions: Cephalexin [Keflex] 500 mg PO Q12HR 7 Days #14 cap Phenazopyridine HCl [Pyridium] 100 mg PO TID #9 tab Is patient prescribed a controlled substance at d/c from ED?: No Referrals: Jerman Garcia DO [Primary Care Provider] - 1-2 days Time of Disposition: 23:05
[2024-03-20] MEDS: cefTRIAXone 1,000 MG VIAL (IM USE) IM STA (23:33)
[2024-03-20] MEDS: PHENAZOPYRIDINE 200 MG TAB PO STA (23:33)
[2024-03-20 23:41] VITALS: BP 134/74; PULSE 72
== END 2024-03-20 23:42 | disposition home or self-care (01) ==
LOC: EC 22:07
DX: N39.0 Urinary tract infection, site not specified (principal); B96.20 Unspecified Escherichia coli [E. coli] as the cause of diseases classified elsewhere; Z88.0 Allergy status to penicillin; Z88.2 Allergy status to sulfonamides; Z88.8 Allergy status to other drugs, medicaments and biological substances
CPT/HCPCS: 81001; 81025; 87086; 99283; 96372; J0696

== ENCOUNTER → 2024-11-06 | Outpatient (CLI) | payer MEDICAID, OTHER ==
[2024-11-06 19:58] LABS: Influenza A Not Detected (Not Detectd); Influenza B Not Detected (Not Detectd); RSV Not Detected (Not Detectd)
== END | disposition home or self-care (01) ==
LOC: LABMAIN 19:05
PROVIDERS: ATTEND Physician Assistant
DX: R05.9 Cough, unspecified (principal)
CPT/HCPCS: 87636; 87651